=== PATIENT | female | born 1960 | race Caucasian/White ===

== ENCOUNTER 2016-09-03 15:03 | Emergency (ER) | payer MEDICAID ==
--- NOTE | 2016-09-03 16:29 | ED Physician Chart ---
Chief Complaint/HPI - Patient Information Date Seen:: 09/03/16 Time Seen:: 15:40 Chief Complaint:: burning, itching pain left lower ext x 2 days History of Present Illness:: pt with spontaneous onset left lat thigh pain yesterday without any known etiology. over next 24 hours progressed to itchy, burning sensation over lat lower leg and side of foot. no rash, no weakness, no visible swelling or discoloration. no hx c/w DVT or bacterial infection or allergy. Allergies:: Allergies Allergy/AdvReac Type Severity Reaction Status Date / Time diphenhydramine Allergy Verified 06/03/16 16:25 [From Benadryl] Penicillins [PCN] Allergy Verified 06/03/16 16:25 Vitals:: Vital Signs - 8 hr 09/03/16 15:33 Temp 98.1 F HR 83 RR 19 BP 182/77 O2 Sat % 98 Historian:: Patient Review:: Nurse's Note Reviewed Review of Systems - Review of Systems General/Constitutional: No fever, No chills, No weakness, No diaphoresis Skin: No skin lesions, No rash, No bruising Head: No headache Eyes: No loss of vision, No pain, No diplopia ENT: No earache, No nasal drainage, No sore throat, No tinnitus Neck: No neck pain Cardio Vascular: No chest pain, No palpitations, No PND, No orthopnea, No edema Pulmonary: No SOB, No cough, No sputum, No wheezing GI: No nausea, No vomiting, No diarrhea, No pain, No melena, No hematochezia, No constipation, No hematemesis G/U: No dysuria, No frequency, No hematuria Musculoskeletal: Other (left lat lower ext pain, itch, burn) Psychiatric: No prior psych history, No depression, No anxiety, No suicidal ideation Hematopoietic: No bruising, No lymphadenopathy Allergic/Immuno: No urticaria, No angioedema Neurological: No syncope, No focal symptoms, No weakness, No paresthesia, No headache, No seizure, No dizziness, No confusion, No vertigo Past Medical History - Past Medical History Past Medical History: No significant medical hx Social History: Non Smoker, No Alcohol Surgical History: None Family Medical History - Family Member Mother History Unknown: Yes Ethnicity: Living Status: Unknown Hx Family Cancer: No Hx Family Coronary Artery Disease: No Hx Family Congestive Heart Failure: No Hx Family Hypertension: No Hx Family Stroke: No Hx Family Diabetes: Yes Physical Exam - Physical Examination General/Constitutional: Awake, Well-developed, well-nourished, Alert, No distress, GCS 15, Non-toxic appearing, Ambulatory Head: Atraumatic Eyes: Lids, conjuctiva normal, PERRL, EOMI Skin: Nl inspection, No rash, No skin lesions, No ecchymosis, Well hydrated, No lymphadenopathy Neck: Nontender, Full ROM w/o pain, No JVD, No nuchal rigidity, No bruit, No mass, No stridor Respiratory: Nl effort/Exclusion, Clear to Auscultation, No Wheeze/Rhonchi/Rales GI: No tenderness/rebounding/guarding, No organomegaly, No hernia, Normal BS's, Nondistended, No mass/bruits, No McBurney tenderness Extremities: Full ROM, normal strength in all extremities, No edema, Normal digits & nails Other Extremities comments:: palpation of L thigh, lower leg and foot causes mild tenderness in distribution of prior sx.. no weakness, no rash, no tremor, no swelling, no erythema, no lumps or masses. DTR's 2+, nl strength, nl ambulation. Neuro/Psych: Alert/oriented, DTR's symmetric, Normal sensory exam, Normal motor strength, Judgement/insight normal, Mood normal, Normal gait, No focal deficits ED Septic Shock - . Is Septic Shock (SBP<90, OR Lactate>4 mmol\L) present?: No - <6hrs of presentation: Vital Signs: Vital Signs - 8 hr 09/03/16 15:33 Temp 98.1 F HR 83 RR 19 BP 182/77 O2 Sat % 98 Reassessment (Disposition) - Reassessment Reassessment Condition:: Unchanged (MDM: no rash but h/p may be c/w zoster? prior to rash appearance. d/w pt and family that may be inflammation vs zoster vs other uncharacterized process?) - Aftercare/Follow up Instructions Aftercare/Follow-Up Instructions:: Counseled pt regarding lab results/diagnosis & need follow up Notes:: schedule f/u with clinic if no sponyaneous resolution. RTER if dramatically worse. Medication Prescribed:: valcyclovir 1gm tid x 7days but only fill if rash appears. - Patient Disposition Discharge/Transfer:: Home Condition at Disposition:: Stable ED Discharge Plan - Patient Disposition Admit/Discharge/Transfer: PT DISCHARGED HOME Condition at Disposition: Stable Prescriptions: Valacyclovir HCl [Valacyclovir] 1,000 mg PO TID #0 tablet Instructions: Hip Pain Additional Instructions: May take Motrin for pain as directed.
== END 2016-09-03 16:03 | disposition home or self-care (01) ==
LOC: ER 15:03
DX: L29.9 Pruritus, unspecified (principal); Z88.0 Allergy status to penicillin; Z88.8 Allergy status to other drugs, medicaments and biological substances
CPT/HCPCS: Z7502

== ENCOUNTER 2017-09-17 05:53 | Emergency (ER) | payer MEDICAID ==
[2017-09-17] MEDS ORDERED: Levofloxacin 500mg/100mL 500 MG/100 ML BAG IV ONE (06:42)
[2017-09-17] MEDS ORDERED: metroNIDAZOLE 500mg/NS 100mL 500 MG/100 ML BAG IV ONE (06:43)
[2017-09-17] MEDS ORDERED: Sodium Chloride 0.9% 1,000 ML IV ONE ×2 (06:45→07:30)
[2017-09-17] MEDS ORDERED: Diphenoxylate/Atropine 2.5mg Tab PO STA (06:46)
--- NOTE | 2017-09-17 07:07 | ED Physician Chart ---
ED Chief Complaint/HPI - Patient Information Date Seen:: 09/17/17 Time Seen:: 07:06 History of Present Illness:: NAUSEA, VOMITING, DIARRHEA THAT THAT BEGAN YESTERDAY IN THE MORNING. SINCE THE ONSET OF SYMPTOMS, THE PATIENT HAS HAD FOUR EPISODES OF VOMITING AND FOUR EPISODES OF DIARRHEA. SHE DENIES ANY ABDOMINAL PAIN OR DISCOMFORT. SHE IS HAD NO FEVER BUT SHE HAS HAD CHILLS. NO DIAPHORESIS. THERE ARE NO EXACERBATING OR RELIEVING FACTORS. Allergies:: Allergies Allergy/AdvReac Type Severity Reaction Status Date / Time diphenhydramine Allergy Verified 09/17/17 06:10 [From Benadryl] Penicillins [PCN] Allergy Verified 09/17/17 06:10 Vitals:: Vital Signs - 8 hr 09/17/17 06:10 Temp 98.6 F HR 90 RR 18 BP 125/74 O2 Sat % 99 ED Review of Systems - Review of Systems General/Constitutional: No fever, Chills, No weakness, No diaphoresis, No edema , Loss of appetite Skin: No skin lesions, No bruising Head: No headache, No light-headedness Eyes: No loss of vision, No diplopia ENT: No sore throat Neck: No neck pain, No thyromegaly, No stiffness, No mass noted Cardio Vascular: No chest pain, No palpitations, No orthopnea, No edema Pulmonary: No SOB, No cough, No sputum, No wheezing GI: No melena, No hematochezia, No constipation G/U: No hematuria, No nacturia Microbiology Manager: No abnormal vaginal bleed Musculoskeletal: No bone or joint pain, No back pain, No muscle pain Psychiatric: No prior psych history, No depression, No suicidal ideation Hematopoietic: No bruising Allergic/Immuno: No urticaria, No angioedema Neurological: No syncope, No focal symptoms, No weakness, No paresthesia, No headache, No seizure, No dizziness, No confusion, No vertigo ED Past Medical History - Past Medical History Past Medical History: Other ( THE PATIENT HAS PREDIABETES.) Family History: Diabetes Melitus Social History: Non Smoker, No Alcohol, No Drug Use, Surgical History: Cholecystectomy Psychiatricy History: None Family Medical History - Family Member Mother History Unknown: Yes Ethnicity: Living Status: Unknown Hx Family Cancer: No Hx Family Coronary Artery Disease: No Hx Family Congestive Heart Failure: No Hx Family Hypertension: No Hx Family Stroke: No Hx Family Diabetes: Yes ED Septic Shock - <6hrs of presentation: Vital Signs: Vital Signs - 8 hr // 06:10 Temp 98.6 F HR 90 RR 18 BP 125/74 O2 Sat % 99
[2017-09-17 07:13] LABS: HEMATOCRIT 42.4 % (41.0-60); HEMOGLOBIN 14.2 gm/dL (12-16); MEAN CELL VOLUME 89.4 fl (81-100); MEAN CORPUSCULAR HEMOGLOBIN 29.9 pg (27.0-31.0); MEAN CORPUSCULAR HGB CONC 33.4 pg (28.0-36.0); MEAN PLATELET VOLUME 8.4 fl; RED BLOOD COUNT 4.74 Mil/cmm (3.80-5.10); RED CELL DISTRIBUTION WIDTH 12.7 % (11.5-20.0)
[2017-09-17 07:19] LABS: PLATELET COUNT 315 Th/cmm (150-400); WHITE BLOOD COUNT 6.9 Th/cmm (4.8-10.8)
[2017-09-17 07:20] LABS: ANION GAP 9.6 (7.0-16.0); BUN - UREA NITROGEN 14 mg/dL (7-25); CALCIUM SERUM 9.7 mg/dL (8.6-10.3); CARBON DIOXIDE 26.7 mEq/L (21.0-31.0); CHLORIDE 105 mEq/L (98-107); CREATININE - SERUM 0.6 mg/dL (0.6-1.2); GFR AFRICAN-AMERICAN > 60.0 ml/min (>90); GFR NON AFRICAN-AMERICAN > 60.0 ml/min; GLUCOSE 104 mg/dL (70-105); POTASSIUM SERUM 3.3 mEq/L (3.5-5.1); SODIUM SERUM 138 mEq/L (136-145)
[2017-09-17 07:38] LABS: MANUAL DIFF REQUIRED? YES
[2017-09-17 07:40] LABS: BAND NEUTROPHILE 1 % (0-10); EOSINOPHIL 2 % (0-5); LYMPHOCYTE 7 % (20-50); MONOCYTE 7 % (2-10); NEUTROPHILS 83 % (40-80); PLATELET ESTIMATE ADEQUATE (NORMAL); TOTAL CELLS COUNTED 100
--- NOTE | 2017-09-17 10:08 | ER Physician Documentation ---
DATE OF SERVICE: CHIEF COMPLAINT: Abdominal pain, nausea, vomiting, and diarrhea since last night, 12 midnight, and now it is about 6:30, she came here over somewhere around that time. Triage was done, at 6 in the morning, triaging was started. HISTORY OF PRESENT ILLNESS: The patient had a couple of diarrhea, nausea, and vomiting, and the patient ate some corn and other substances ____ food. The patient is still retching. REVIEW OF SYSTEMS: Essentially benign and negative. She has not had any nausea, vomiting, diarrhea in the past. EYES: No history of double vision, blurring, blindness. CENTRAL NERVOUS SYSTEM: No TIA, stroke, encephalitis, meningitis. PULMONARY: No history of pneumonia, TB, pulmonary embolism, COPD, emphysema, bronchitis. BONES AND JOINTS: No apparent complaints. CARDIAC: No chest pain, no myocardial infarction. No rheumatic fever. GASTROINTESTINAL: The symptoms that I mentioned holds true. No history of any definite peptic ulcer disease, any tumors. Diarrhea is watery and slightly semisolid. The patient most likely has a virus-type of infection, but cannot take chances. PULMONARY: No history of pneumonia, TB, pulmonary embolism, COPD, emphysema, bronchitis. GENITOURINARY: No burning, frequency, or dysuria. The patient does not have any cancer problems. A 12-system review of systems is essentially negative. Genitourinary system is negative. No history of any bleeding from any place. No history of any ingestion of any poisons or any other substances that would induce vomiting right away on the patient. The patient was evaluated by then the Emergency Room nurse showing vital signs, temperature 98.6, pulse of 90, respirations 18, blood pressure 125/74, saturation 99%, height 5 feet, weight 120. The patient, according to the history, is pre-diabetic. She does not have any history of ____ tetanus vaccination. She does not drink. She is a smoker. PERSONAL HISTORY: She is , has no children, for 36 years. She is a prediabetic according to medical history. PAST SURGICAL HISTORY: The patient has gallbladder symptoms, maybe gallbladder has been removed. FAMILY HISTORY: Negative. MEDICATIONS: None. PHYSICAL EXAMINATION: GENERAL: The patient appears to be awake, alert, oriented, not in any acute cardiorespiratory distress. She has some retching and nausea sensation. Conjunctivae pink. Sclerae are white. HEENT: Normal. She is mildly dehydrated. The patient will be given some IV fluids also and bones and joints appear to be normal. There is no edema, no cyanosis, no petechiae, no ecchymosis. Overall general exam, other than nausea. ABDOMEN: Shows abdomen has generalized vague tenderness noted. We will check the amylase and lipase to see if there is any evidence of pancreatitis, I doubt it. Liver and spleen not enlarged. No free fluid in the abdominal cavity. Littlejohn sign is negative. No evidence of any acute gallbladder. CENTRAL NERVOUS SYSTEM: Within normal limits. HEART: S1, S2 are normal. Fourth heart sound is present. Third heart sound is absent. Second heart sound is physiologically split. LUNGS: Clear. Trachea being central. Fairly decent air entry in both lung mccarty. CLINICAL IMPRESSION: The patient has acute gastroenteritis. The patient will be treated with Levaquin, metronidazole, Zofran, and patient will be given Imodium and Flagyl IV and some fluids. We will check some lab workup, CBC, BMP, amylase, lipase, and some urinalysis and if everything is normal and she gets better, she will be discharged from home. Dr. Butler is here. I will be leaving the shift around 7 p.m. We will follow up and if everything is normal, the patient can be discharged home. JOB# [id number]
== END 2017-09-17 09:27 | disposition home or self-care (01) ==
LOC: ER 05:53
DX: R11.2 Nausea with vomiting, unspecified (principal); R19.7 Diarrhea, unspecified
CPT/HCPCS: 99284; 83880; 36415; 85025; 83690; 80048; 85007; 85027; Q0162; J7030; Z7502

== ENCOUNTER 2018-05-13 15:39 | Emergency (ER) | payer MEDICAID ==
[2018-05-13] MEDS ORDERED: Silver Nitrate 1 Swab TP STA ×2 (16:13→16:36)
[2018-05-13] MEDS ORDERED: Silver Nitrate 1 Swab TP ONE (16:27)
--- NOTE | 2018-05-13 16:41 | ED Physician Chart ---
ED Chief Complaint/HPI - Patient Information Date Seen:: 05/13/18 Time Seen:: 16:25 Chief Complaint:: LUE skin lesion that bled History of Present Illness:: LUE skin lesion that bled. 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 One present on her LUE that measures 2 mm in size she picked at and it bled. Prior to arrival to the ER, the bleeding had stopped. Allergies:: Allergies Allergy/AdvReac Type Severity Reaction Status Date / Time diphenhydramine Allergy Verified 09/17/17 06:10 [From Benadryl] Penicillins [PCN] Allergy Verified 09/17/17 06:10 Vitals:: Vital Signs - 8 hr 05/13/18 16:25 Temp 98.1 F HR 78 RR 17 BP 140/61 O2 Sat % 99 Historian:: Patient Review:: Nurse's Note Reviewed ED Review of Systems - Review of Systems General/Constitutional: No fever, No chills, No weight loss, No weakness, No diaphoresis, No edema, No loss of appetite Skin: Other (LUE skin lesion that bled. 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 One present on her LUE that measures 2 mm in size she picked at and it bled.) Head: No headache, No light-headedness Eyes: No loss of vision, No pain, No diplopia ENT: No earache, No nasal drainage, No sore throat, No tinnitus Neck: No neck pain, No swelling, No thyromegaly, No stiffness, No mass noted Cardio Vascular: No chest pain, No palpitations, No PND, No orthopnea, No edema Pulmonary: No SOB, No cough, No sputum, No wheezing GI: No nausea, No vomiting, No diarrhea, No pain, No melena, No hematochezia, No constipation, No hematemesis G/U: No dysuria, No frequency, No hematuria Musculoskeletal: No bone or joint pain, No back pain, No muscle pain Endocrine: No polyuria, No polydipsia Psychiatric: No prior psych history, No depression, No anxiety, No suicidal ideation Hematopoietic: No bruising, No lymphadenopathy Allergic/Immuno: No urticaria, No angioedema Neurological: No syncope, No focal symptoms, No weakness, No paresthesia, No headache, No seizure, No dizziness, No confusion, No vertigo ED Past Medical History - Past Medical History Obtainable: Yes Past Medical History: No significant medical hx Family Medical History - Family Member Mother History Unknown: Yes Ethnicity: Living Status: Unknown Hx Family Cancer: No Hx Family Coronary Artery Disease: No Hx Family Congestive Heart Failure: No Hx Family Hypertension: No Hx Family Stroke: No Hx Family Diabetes: Yes ED Physical Exam - Physical Examination General/Constitutional: Awake, Well-developed, well-nourished, Alert, No distress, GCS 15, Non-toxic appearing, Ambulatory Head: Atraumatic Eyes: Lids, conjuctiva normal, PERRL, EOMI Skin: No rash, No ecchymosis, Well hydrated, No lymphadenopathy Other Skin comments:: LUE skin lesion that bled. 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 One present on her LUE that measures 2 mm in size she picked at and it bled. Prior to arrival to the ER, the bleeding had stopped. ENMT: External ears, nose nl Neck: Nontender, No nuchal rigidity Extremities: No tenderness or effusion, Full ROM, normal strength in all extremities, No edema, Normal digits & nails Other Extremities comments:: LUE skin lesion that bled. 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 One present on her LUE that measures 2 mm in size she picked at and it bled. Prior to arrival to the ER, the bleeding had stopped. NV intact. Neuro/Psych: Alert/oriented, Normal sensory exam, Normal motor strength, Judgement/insight normal, Mood normal, Normal gait, No focal deficits ED Assessment - Procedures Procedures:: silver nitrate cauterization with 4 silver nitrate sticks after patient continued to traumatize the LUE lesion. Informed Consent: Procedure/risk/benefits explained by MD: Yes ED Septic Shock - . Is Septic Shock (SBP<90, OR Lactate>4 mmol\L) present?: No - <6hrs of presentation: Vital Signs: Vital Signs - 8 hr 05/13/18 16:25 Temp 98.1 F HR 78 RR 17 BP 140/61 O2 Sat % 99 ED Reassessment (Disposition) - Reassessment Reassessment Condition:: Improved - Diagnosis Diagnosis:: Traumatized LUE skin lesion, capillary hemangioma. - Aftercare/Follow up Instructions Aftercare/Follow-Up Instructions:: Refer to Discharge Instructions Medication Prescribed:: none - Patient Disposition Discharge/Transfer:: Home Condition at Disposition:: Stable, Improved
== END 2018-05-13 17:12 | disposition home or self-care (01) ==
LOC: ER 15:39
DX: S49.92XA Unspecified injury of left shoulder and upper arm, initial encounter (principal); D18.01 Hemangioma of skin and subcutaneous tissue; Z88.0 Allergy status to penicillin; Z88.8 Allergy status to other drugs, medicaments and biological substances; X58.XXXA Exposure to other specified factors, initial encounter; Y93.89 Activity, other specified; Y92.89 Other specified places as the place of occurrence of the external cause; Y99.8 Other external cause status
CPT/HCPCS: Z7502